=== PATIENT | male | born 1995 | race African-American/Black ===

== ENCOUNTER 2023-08-06 07:13 | Emergency (ER) | payer OTHER, SELFPAY ==
[2023-08-06] MEDS ORDERED: Ibuprofen 200 MG TAB ONE (08:59)
== END 2023-08-06 09:24 | disposition home or self-care (01) ==
LOC: ERS 07:13
DX: S81.811A Laceration without foreign body, right lower leg, initial encounter (principal); S00.83XA Contusion of other part of head, initial encounter; S80.811A Abrasion, right lower leg, initial encounter; V89.2XXA Person injured in unspecified motor-vehicle accident, traffic, initial encounter; W22.11XA Striking against or struck by driver side automobile airbag, initial encounter
CPT/HCPCS: 70450; 70486; 72125; G0390